=== PATIENT | female | born 1985 | race Caucasian/White ===

== ENCOUNTER 2018-04-30 17:32 | Emergency (ER) | payer SELFPAY ==
[~2018-04-30] VITALS: Ht 167.6 cm; Wt 63.5 kg
[2018-04-30 17:42] VITALS: BP 131/61
[2018-04-30 18:07] LABS: APPEARANCE,URINE Cloudy (CLEAR); BILIRUBIN,URINE Negative (NEGATIVE); BLOOD, URINE Moderate Ery/uL (NEGATIVE); COLOR,URINE Yellow (YELLOW); KETONES,URINE Negative (NEGATIVE); LEUKOCYTE ESTERASE ,URINE Small (NEGATIVE); NITRITE, URINE Negative (NEGATIVE); PH,URINE 5.5 (5.0-8.0); PROTEIN,URINE 30 mg/dl (NEGATIVE); UGLUCOSE Negative (NEGATIVE); UROBILINOGEN,URINE 0.2 EU/dL (0.2)
[2018-04-30 18:13] LABS: BACTERIA,URINE Few /HPF (None Seen); MUCUS,URINE Few /LPF (None Seen); SQUAMOUS EPITHELIAL CELL,UR Few /HPF (None Seen); WBC,URINE 81-100 /HPF (0-3)
== END 2018-04-30 18:44 | disposition home or self-care (01) ==
LOC: ER 17:34
DX: N39.0 Urinary tract infection, site not specified (principal); Z90.89 Acquired absence of other organs; Z41.1 Encounter for cosmetic surgery
CPT/HCPCS: 81000-TC; 84703-TC; 87086-TC; 87186-TC; A4606; Z7610